=== PATIENT | female | born 1995 | race Hispanic/Latino ===

== ENCOUNTER 2017-08-31 16:38 | Inpatient (IN) | payer OTHER ==
[~2017-08-31] VITALS: Ht 167.6 cm; Wt 77.1 kg
--- NOTE | 2017-08-31 16:52 | ED GENERAL ADULT ---
History of Present Illness General Chief Complaint: General Adult Stated Complaint: BODY ACHES,COUGH Source: patient, family Exam Limitations: no limitations Vital Signs & Intake/Output Vital Signs & Intake/Output Vital Signs Date Time Temp Pulse Resp B/P B/P Pulse O2 O2 Flow FiO2 Mean Ox Delivery Rate 08/31 2304 Room Air 08/31 2226 99.4 08/31 2225 99.4 108 18 101/53 96 Room Air 08/31 2014 100.2 08/31 2008 100.2 112 18 111/64 98 Room Air 08/31 2006 112 111/64 08/317 99.0 117 20 85/47 97 Room Air 08/31 1836 99.0 08/31 1715 Room Air Room Air 08/31 1714 103.0 08/31 1643 103.0 126 119/72 ED Intake and Output 09/01 0000 08/31 1200 Intake Total 3000 Output Total Balance 3000 Intake, IV 3000 Patient 170 lb Weight Weight Reported by Patient Measurement Method Allergies Coded Allergies: No Known Allergies (08/31/17) Reconcile Medications Albuterol Sulfate (Proair Hfa) 90 MCG HFA.AER.AD 2 PUF INH PRN ASTHMA ( Reported) Pnv59/Iron,Carb&Fum/FA/Dss/Dha (Citranatal [place] Capsule) 27 MG IRON-1 MG-50 MG-260 MG CAPSULE 1 CAP PO DAILY (Reported) Triage Note: TRIAGE: 22 Y/O FEMALE PRESENTS WITH TEMP 103.0. C/O FEVER AND BODY ACHES. DENIES ABDOMINAL CRAMPING OR ABDOMINAL PAIN. DENIES VAGINAL DISCHARGE. LAST DOSE TYLENOL AT 1PM. DUE DATE: 01/21/2018 OB: FRANCESCA SPOKE WITH CHILDBIRTH - OKAY TO BE SEEN IN ED. Triage Nurses Notes Reviewed? yes Onset: Gradual Duration: hour(s): (4-6 HOURS) Timing: no prior history Injury Environment: home Severity: moderate No Modifying Factors: none : Yes Patient currently breastfeeds: No HPI: Patient is a 22-year-old female who is currently 20 weeks , due date of January 21, presenting to the emergency Department chief complaint of sudden onset body aches, fevers up to 103 at home, dry cough started approximately 3-4 hours prior to arrival. Her last dose of Tylenol was 650 mg taken at 1 PM. She reports to help slightly and then symptoms returned. She has not gotten the flu shot this year. Denies any abdominal pain. No vaginal discharge or bleeding. Denies any urinary frequency or urgency or dysuria. No chest pain or palpitations. No sick contacts or recent travel. (Jackie Concepcion) Past History Travel History Traveled to [place] past 21 day No Medical History Any Pertinent Medical History? see below for history Surgical History Surgical History: non-contributory Psychosocial History What is your primary language Czech Tobacco Use: Never used ETOH Use: denies use Illicit Drug Use: denies illicit drug use Family History Hx Contributory? No (Jackie Concepcion) Review of Systems Review of Systems Constitutional: Reports: fever, malaise, weakness. Comments Review of systems: See HPI, All other systems negative. Constitutional, no weight loss HEENT: No visual changes Cardiovascular: No chest pain ,palpitation , orthopnea or ankle swelling Skin, no jaundice no rashes Respiratory: No dyspnea sputum or hemoptysis GI: No nausea no vomiting : No dysuria No hematuria Muscle skeletal: no back pain, no neck pain, Neurologic: No numbness no confusion Psych: No stress anxiety or depression,. Heme/endocrine: No bruising no bleeding no polyuria or polydipsia Immunology: No splenectomy or history of AIDS (Jackie Concepcion) Physical Exam Physical Exam General Appearance: well developed/nourished, alert, awake, anxious Comments: Well-developed well-nourished person in MILD DISTRESS HEENT: Pupils equally round and reactive to light and accommodation. Nose is atraumatic. External auditory canal and Tympanic membranes clear. Pharynx is mildyl erythematous. No swelling or edema. Dry oral mucosa. Neck: Supple, no lymphadenopathy Back: Nontender, no CVA tenderness. Cardiovascular: Tachycardic rate and rhythms no murmurs rubs or gallops Respiratory: Chest nontender. No respiratory distress.breath sounds clear to auscultation bilaterally Abdomen: Soft, abdomen, nontender nondistended, no appreciable organomegaly. Normal bowel sounds. No ascites. Old surgical incision noted on the right lower quadrant without surrounding erythema or edema. Extremity: No edema Neuro: Alert oriented x3 Skin: No appreciable rash on exposed skin, skin is warm and dry. Psych: Mood and affect is normal, memory and judgment is normal. Core Measures ACS in differential dx? No CVA/TIA Diagnosis: No Sepsis Present: No Sepsis Focused Exam Completed? No (Jackie Concepcion) Progress Differential Diagnoses I considered the following diagnoses in my evaluation of the patient: Viral syndrome, influenza, dehydration, and actually abnormality,strep, uti Plan of Care: Orders Procedure Date/time Status Regular Diet 09/01 B Active THROAT CULTURE W/QUICK STREP 09/01 311 Active LOWER RESPIRATORY CULTURE 09/01 311 Active BLOOD CULTURE 08/31 2322 Active Pathway - chart 08/31 2319 Active House Staff 08/31 2319 Active Patient Data 08/31 2319 Active Code Status 08/31 232 Active Vital Signs 08/31 2302 Active Teach/Educate 08/31 2302 Active Pain Treatment and Response 08/31 2302 Active Nutritional Intake, Monitor 08/31 2302 Active Isolation 08/31 2302 Active Intake & Output 08/31 2302 Active Patient Care Conference 08/31 2302 Active Activity/Ambulation 08/31 2302 Active ED Holding Orders 08/31 2144 Active Admit to inpatient 08/31 2144 Active Code Status 08/31 2144 Complete Patient Data 08/31 2113 Active Add-on Test (ER Only) 08/31 1951 Active MISTAKE 08/31 193 Active CULTURE,URINE 08/31 193 Active THROAT CULTURE W/QUICK STREP 08/31 1838 Active URINALYSIS 08/31 1652 Complete HUMAN BETA HCG TITRE 08/31 1652 Complete COMPREHENSIVE METABOLIC PANEL 08/31 1652 Complete CBC WITHOUT DIFFERENTIAL 08/31 1652 Complete Intake & Output 08/31 1643 Active RAPID VIRAL INFLUENZA A 08/31 1641 Complete VTE Mechanical Prophylaxis 08/31 UNK Active Current Medications Sig/Maximilian Start time Last Medication Dose Stop Time Status Admin Enoxaparin Sodium 40 MG DAILY 09/01 1000 AC (Lovenox) Oseltamivir Phosphate 75 MG BID 09/01 1000 AC (Tamiflu 75MG) 09/05 0959 Acetaminophen 650 MG Q8P PRN 08/31 2330 AC (Tylenol) Sodium Chloride 1,000 ML Q10H 08/31 2330 AC 09/01 (Normal Saline 0.9%) 09/02 0529 0020 Laboratory Tests 08/31/17 1934: Urinalysis HEAVY H, Urine Color YEL, Urine Clarity HAZY H, Urine pH 7.0, Ur Specific [place] 1.025, Urine Protein TRACE H, Urine Ketones 15 H, Urine Nitrite NEG, Urine Bilirubin NEG, Urine Urobilinogen 2.0 H, Ur Leukocyte Esterase MOD H, Ur Microscopic SEDIMENT EXAMINED, Urine WBC 3-5 H, Ur Epithelial Cells MANY H, Urine Bacteria FEW H, Hyaline Casts RARE H, Urine Hemoglobin NEG, Urine Glucose NEG 08/31/17 1704: Anion Gap 11, Estimated GFR > 60, BUN/Creatinine Ratio 15.0, Glucose 91, Calcium 8.3 L, Total Bilirubin 0.3, AST 64 H, ALT 62 H, Alkaline Phosphatase 77, Total Protein 6.1 L, Albumin 3.3 L, Globulin 2.8, Albumin/Globulin Ratio 1.2, Beta HCG, Quant 64078.0, CBC w Diff NO MAN DIFF REQ, RBC 3.32 L, MCV 94.9, MCH 32.7 H, MCHC 34.5, RDW 12.4, MPV 7.9, Gran % 82.6 H, Lymphocytes % 7.0 L, Monocytes % 10.1 H, Eosinophils % 0.2, Basophils % 0.1, Absolute Granulocytes 4.3, Absolute Lymphocytes 0.4 L, Absolute Monocytes 0.5, Absolute Eosinophils 0 , Absolute Basophils 0 Microbiology 09/01 031 LOWER RESP: Respiratory Culture - ORD 09/01 311 LOWER RESP: Gram Stain - ORD 08/31 193 URINE ROUT: Urine Culture - RECD 08/31 1647 NASOPHARYN: Influenza Virus A & B Rapid Smear - COMP INFLUENZA TYPE A Patient received a total of 2 L IV hydration, finally able to override urine, urine is dark in color. Patient reports that she still feeling extremity weak and fatigued and has a frontal headache. Patient has received a total of 975 mg of by mouth Tylenol. Since patient is not improving, positive influenza we will admit patient for IV hydration, symptomatic treatment and continuous monitoring. Spoke with , covering CONSUMER AFFAIRS DIRECTOR, he is okay with admitting the patient to medicine. He will consult on the patient tomorrow. Recommended we hold off treatment for a questionable UTI until cultures return. Patient will continue Tamiflu. Patient will continue IV hydration and by mouth Tylenol. Patient nontoxic. Discussed with and she agrees with plan. Initial ED EKG: none (Jared THOMPSON,Jackie) Departure Departure Time of Disposition: 2109 Disposition: STILL A PATIENT Condition: Stable Clinical Impression Primary Impression: Influenza Secondary Impressions: Urinary tract infection Qualifiers: Urinary tract infection type: site unspecified Hematuria presence: without hematuria Qualified Code: N39.0 - Urinary tract infection, site not specified Referrals: Patient Has No Primary Care Dr Additional Instructions: Follow-up with your CONSUMER AFFAIRS DIRECTOR, call tomorrow to make an appointment for the next 1- 2 days. Increase fluids. Return for worsening symptoms or concerns. Use over- the-counter Tylenol as directed for any aches or pains or fevers. Take Tamiflu as prescribed. Departure Forms: Customer Survey General Discharge Information Admission Note Spoke With: Monica Gonzalez MD Documentation of Exam: Documentation of any treatments & extenuating circumstances including Concerns Regarding Discharge (functional status, medication knowledge or non-compliance, living conditions, etc.) that warrant an admission rather than observation: Patient requiring IV fluids, by mouth antipyretics, by mouth Tamiflu, CONSUMER AFFAIRS DIRECTOR consultation, discharge at this time is medically harmful has patient is high risk for complications of flu secondary to . (Jackie Concepcion) PA/SUPERVISOR LENDING ACTIVITIES Co-Sign Statement Statement: ED Attending supervision documentation- [] I saw and evaluated the patient. I have also reviewed all the pertinent lab results and diagnostic results. I agree with the findings and the plan of care as documented in the PA's/SUPERVISOR LENDING ACTIVITIES's documentation. [X] I have reviewed the ED Record and agree with the PA's/SUPERVISOR LENDING ACTIVITIES's documentation. [] Additions or exceptions (if any) to the PAs/SUPERVISOR LENDING ACTIVITIES's note and plan are summarized below: [] (Rosana COUCH,Candida) Critical Care Note Critical Care Note Critical Care Time: non-applicable (Jackie Concepcion)
[2017-08-31 17:15] LABS: ABSOLUTE BASOPHIL COUNT 0 /CUMM (0.0-0.2); ABSOLUTE EOSINOPHIL COUNT 0 /CUMM (0.0-0.7); ABSOLUTE GRANULOCYTE CT 4.3 /CUMM (1.4-6.5); ABSOLUTE LYMPH COUNT 0.4 /CUMM (1.2-3.4); ABSOLUTE MONOCYTE COUNT 0.5 /CUMM (0.10-0.60); BASOPHIL % 0.1 % (0.0-2.0); EOSINOPHIL % 0.2 % (0-5); GRANULOCYTE % 82.6 % (42.2-75.2); HEMATOCRIT 31.5 % (37-47); MEAN CORPUSCULAR HGB 32.7 PG (27.0-31.0); MEAN CORPUSCULAR HGB CONC 34.5 G/DL (33.0-37.0); MEAN CORPUSCULAR VOLUME 94.9 FL (81.0-99.0); MEAN PLATELET VOLUME 7.9 FL (7.4-10.4); PLATELET COUNT 217 /CUMM (130-400); RBC DISTRIBUTION WIDTH 12.4 % (11.5-14.5); RED BLOOD CELL CT 3.32 /CUMM (4.20-5.40); WHITE BLOOD CELL COUNT 5.3 /CUMM (4.8-10.8)
[2017-08-31] MEDS ORDERED: CITRANATAL HAR1 EACH PO (20:24)
[2017-08-31] MEDS ORDERED: PROAIR HFA8.5 GM INH (20:24)
--- NOTE | 2017-08-31 21:33 | History & Physical ---
Danielito COUCH,[facility] 08/31/17 2133: General Information and HPI MD Statement: I have seen and personally examined FABRICE CARMONA and documented this H&P. The patient is a 22 year old F who presented with a patient stated chief complaint of [fatigue]. Source of Information: patient Exam Limitations: no limitations History of Present Illness: The patient is 22-year-old female with past medical history OF Asthma, 1 miscarriage and 1 . She is at 20 wk of gestation at present. She's presented to [facility] ED on 08/31 with complaint of body aches fever and dry cough. Patient was in usual state of health until one week back when she developed a stomach viral illness resulting in diarrhea. Patient was sick for 2 days and recovered. She was feeling better. But has not been going to work for past 1 week. Today patient had sudden onset of body aches and pains. She took a fever at home and it was up to 102. She took Tylenol around 1 PM and had some symptomatic relief but later started feeling body/muscle aches and fatigue. She also developed a dry cough 3-4 hours before presenting to ED. Rest of review of system is negative no chills. No nausea no abdominal pain or urinary symptoms. No sick contacts. Patient did not receive flu shot this year. Allergies/Medications Allergies: Coded Allergies: No Known Allergies (08/31/17) Home Med list Albuterol Sulfate (Proair Hfa) 90 MCG HFA.AER.AD 2 PUF INH PRN ASTHMA ( Reported) Pnv59/Iron,Carb&Fum/FA/Dss/Dha (Citranatal [place] Capsule) 27 MG IRON-1 MG-50 MG-260 MG CAPSULE 1 CAP PO DAILY (Reported) Past History Travel History Traveled to [place] past 21 day No Surgical History Surgical History: non-contributory Past Family/Social History Family History Relations & Conditions if any No family history of: *No pertinent family history Psychosocial History Where do you live? Home Primary Language: [place] Smoking Status: Former Smoker ETOH Use: denies use Illicit Drug Use: denies illicit drug use Functional Ability ADLs Independent: dressing, eating, toileting, bathing. Ambulation: independent IADLs Independent: shopping, housework, finances, food prep, telephone, transportation , medication admin. Review of Systems Review of Systems Constitutional: Reports: fever, malaise, weakness. EENTM: Reports: no symptoms. Cardiovascular: Reports: no symptoms. Denies: chest pain. Respiratory: Reports: cough. Denies: sputum production, stridor, wheezing. GI: Reports: no symptoms. Genitourinary: Reports: no symptoms. Denies: dysuria, frequency, hematuria, hesitation, nocturia, pain, urgency. Musculoskeletal: Reports: no symptoms, see HPI, back pain, gout, joint pain, joint swelling, muscle pain, muscle stiffness, neck pain. Skin: Reports: no symptoms. Neurological/Psychological: Reports: no symptoms. Exam & Diagnostic Data Last 24 Hrs of Vital Signs/I&O Vital Signs Date Time Temp Pulse Resp B/P B/P Pulse O2 O2 Flow FiO2 Mean Ox Delivery Rate 08/31 2304 Room Air 08/31 2226 99.4 08/31 2225 99.4 108 18 101/53 96 Room Air 08/31 2014 100.2 08/31 2008 100.2 112 18 111/64 98 Room Air 08/31 2006 112 111/64 08/31 1836 99.0 117 20 85/47 97 Room Air 08/31 1836 99.0 08/31 1715 Room Air Room Air 08/31 1714 103.0 08/31 1643 103.0 126 119/72 Intake & Output 09/01 0800 09/01 0000 08/31 1600 Intake Total 3000 Output Total Balance 3000 Intake, IV 3000 Patient 170 lb Weight Weight Reported by Patient Measurement Method Physical Exam General Appearance Alert, Oriented X3, Cooperative, No Acute Distress Skin No Rashes Neck Supple Lymphatic Cervical nl Cardiovascular Normal S1, Normal S2, No Murmurs Lungs Clear to Auscultation, Normal Air Movement Abdomen Normal Bowel Sounds, Soft, No Tenderness Neurological Normal Speech Extremities Normal Pulses, No Tenderness/Swelling Last 24 Hrs of Labs/Quentin: Laboratory Tests 08/31/17 1934: Urinalysis HEAVY H, Urine Color YEL, Urine Clarity HAZY H, Urine pH 7.0, Ur Specific [place] 1.025, Urine Protein TRACE H, Urine Ketones 15 H, Urine Nitrite NEG, Urine Bilirubin NEG, Urine Urobilinogen 2.0 H, Ur Leukocyte Esterase MOD H, Ur Microscopic SEDIMENT EXAMINED, Urine WBC 3-5 H, Ur Epithelial Cells MANY H, Urine Bacteria FEW H, Hyaline Casts RARE H, Urine Hemoglobin NEG, Urine Glucose NEG 08/31/17 1704: Anion Gap 11, Estimated GFR > 60, BUN/Creatinine Ratio 15.0, Glucose 91, Calcium 8.3 L, Total Bilirubin 0.3, AST 64 H, ALT 62 H, Alkaline Phosphatase 77, Total Protein 6.1 L, Albumin 3.3 L, Globulin 2.8, Albumin/Globulin Ratio 1.2, Beta HCG, Quant 44845.0, CBC w Diff NO MAN DIFF REQ, RBC 3.32 L, MCV 94.9, MCH 32.7 H, MCHC 34.5, RDW 12.4, MPV 7.9, Gran % 82.6 H, Lymphocytes % 7.0 L, Monocytes % 10.1 H, Eosinophils % 0.2, Basophils % 0.1, Absolute Granulocytes 4.3, Absolute Lymphocytes 0.4 L, Absolute Monocytes 0.5, Absolute Eosinophils 0 , Absolute Basophils 0 Microbiology 08/31 193 URINE ROUT: Urine Culture - RECD 08/31 1647 NASOPHARYN: Influenza Virus A & B Rapid Smear - COMP INFLUENZA TYPE A Assessment/Plan Assessment: The patient is 22-year-old female with past medical history 1 miscarriage and 1 . She is at 20 wk of gestation at present. She's presented to [facility] ED on 08/31 with complaint of body aches fever and dry cough. -Vital signs temperature 103, heart rate 126, blood pressure 119/72, oxygen saturation 97% on room air -Pertinent labs H/H 10.3, AST 64 ALT 62 urine shows moderate leukoesterase with many epithelial cells, few urine bacteria and 3-5 urine WBCs -In ED patient dropped her pressure to 85/47 and received 2L normal saline 975 mg of Tylenol. Flu test was done which was positive. The patient is being admitted to general medicine floor and is being treated evaluated for following conditions #Sepsis secondary to Influenza type A Patient has symptoms of fatigue and body aches and is presenting with fever, tachycardia and transient hypotension. Her flu test was positive for type influenza type A. -Tamiflu for 5 days -Monitoring vitals closely -Panculture -IV Tylenol -IVF #Asymptomatic bacteriuria Patient UA positive for moderate leukoesterase along with bacteria and few WBCs. Asymptomatic bacteriuria should be treated in . However UA does show many epithelial cells questioning the specimen. was contacted in the ED and recommended to hold off antibiotics till cultures. -Repeat UA -Follow urine culture -UNEMPLOYMENT SPECIALIST consult in the morning -Low threshold of treating the UTI #Transaminitis patient is presenting with AST 64 and ALT 62 likely secondary to ongoing viral infection -Monitor LFTs # Patient is at 20 weeks of gestation. -UNEMPLOYMENT SPECIALIST consult in the morning -Regular doppler/USG #FC/DVT prophylaxis with Lovenox/regular diet As Ranked By This Provider Problem List: 1. Influenza Core Measures/Misc (04/21) Acute Coronary Syndrome ACS Diagnosis: No Congestive Heart Failure Congestive Heart Failure Diagnosis No Cerebrovascular Accident CVA/TIA Diagnosis: No VTE (View Protocol) VTE Risk Factors / No Mechanical VTE Prophylaxis d/t N/A MechProphylax Ordered No VTE Pharm Prophylaxis d/t NA PharmProphylax ordered Sepsis (View protocol) Sepsis Present: Yes Julia Woodson 09/01/17 0140: Resident Review Statement Resident Statement: discussed with collector of internal revenue Other Findings: 22-year-old woman A2 with past medical history of asthma, currently 20 weeks , presented to ER with complaint of body aches, fever Tmax 102 and dry cough. She also reports having diarrhea a week ago that has resolved. She took Tylenol at home. Denies any sick contacts around. Other review of system negative. Vitals on admission: Temperature 103, pulse 126, respiratory rate 20, blood pressure 119/72 and oxygen saturation 97% on room air. Physical exam normal Labs within normal range except H&H 10.8/31.5. Rapid flu positive and influenza A. UA showed hazy urine with trace proteins, 3-5 urine WBCs and moderately high leukocyte esterase. In ER she was given, Tylenol and Tamiflu 1. Assessment and plan She is young 22-year-old woman, 20 weeks , with past medical history of asthma is going to be admitted on general medicine floor for influenza. Vitals every shift. Continue IV hydration. We will continue Tamiflu. OB consult in a.m. Follow-up urine and blood cultures. Pain management pathway. DVT prophylaxis. Full code Carlos COUCH, [facility] 09/01/17 0223: Attending MD Review Statement Attending Statement Attending MD Statement: examined this patient, discuss w/resident/PA/LAY OUT WORKER, agreed w/resident/PA/LAY OUT WORKER, discussed with family, reviewed images, amended to note Attending Assessment/Plan: 22 yo F A2 now at 20 weeks gestation (BRAYAN 01/21/2018), has h/o childhood asthma, recovering from a 'stomach virus' in the past week, is here today for evaluation of sudden onset malaise, fever 102, dry cough and sore throat a few hours prior to ER arrival. She took tylenol for fever with no effect. No sick contacts. She did not get the flu vaccines. She has no abdominal or urinary symptoms. Her OB is Shahbaz Hairston. Vitals: Tmax 103, HR 100-120's, BP 119/72 --> 85/47 --> 111/64, sats 96% RA. Exam: AAO, ill-appearing, dry mucous membranes, Abd: 20 weeks gestation, otherwise unremarkable exam. Labs: WBC 5.3, AST 64, ALT 62. UA trace protein, mod LE, few bacteria. Flu swab: influenza A Assessment and plan: 1. Sepsis, Influenza A 2. Transient hypotension - resolved 3. 20 weeks gestation 4. Asthma 5. Asymptomatic bacteriuria 6. Transaminitis in the setting of the flu - Admit to general medicine - [facility] nebs - Panculture, check strep throat - Gentle IV hydration - Tamiflu BID (safe in ) - Tylenol as needed for fevers - Dr. Diaz was contacted by jake JONES to admit to medicine. He will consult in AM - As per Dr. Diaz, holding off on antibiotic coverage for positive UA in patient. Follow urine cultures. - doppler done in the ER HR around 160's. DVT ppx Lovenox. Full code.
--- NOTE | 2017-09-01 02:14 | Admission Certification ---
Admission Certification Certification Statement - As attending physician, I certify that at the time of - admission, based on clinical presentation, severity of - symptoms, need for further diagnostic testing and - therapeutic interventions, and risk of adverse outcomes - without in-hospital treatment, in my clinical assessment, - this patient requires an acute hospital stay for a minimum - of two nights or longer. I have also considered psychsocial - factors such as support system, advanced age, financial - issues, cognitive issues, and failed out-patient treatments, - past re-admission history, safety of patient, and lack of - compliance as applicable. Specific rationale supporting this admission is: Influenza in a patient.
[2017-09-01 06:17] VITALS: BP 104/52
--- NOTE | 2017-09-01 11:52 | Event Note ---
Event Note Event Note: SPOKE WITH dr.OREILLY LEES TO START KEFLEX FOR ASYMPTOMATIC BACTIURIA
--- NOTE | 2017-09-01 13:12 | Cons- OBGYN ---
General Information and HPI Consulting Request Date of Consult: 09/01/17 Requested By: Carlos COUCH,Monica Reason for Consult: PT WITH INFLUENSA Source of Information: patient, old records Exam Limitations: no limitations History of Present Illness: Pt has been having fever and chills has seen by [facility] did not have Flu immunization this season. Allergies/Medications Allergies: Coded Allergies: No Known Allergies (08/31/17) Home Med List: Albuterol Sulfate (Proair Hfa) 90 MCG HFA.AER.AD 2 PUF INH PRN ASTHMA ( Reported) Pnv59/Iron,Carb&Fum/FA/Dss/Dha (Citranatal [place] Capsule) 27 MG IRON-1 MG-50 MG-260 MG CAPSULE 1 CAP PO DAILY (Reported) Current Medications: Current Medications Sig/Maximilian Start time Last Medication Dose Route Stop Time Status Admin Acetaminophen 650 MG Q8P PRN 08/31 2330 AC 09/01 PO 0535 Acetaminophen 0 .STK-MED ONE 08/31 2015 DC PO Acetaminophen 325 MG ONCE ONE 08/31 2014 DC 08/31 PO 08/31 Acetaminophen 0 .STK-MED ONE 08/31 1714 DC PO Acetaminophen 650 MG ONCE ONE 08/31 1700 DC 08/31 PO 08/31 1701 1714 Cephalexin 500 MG Q12 09/01 1230 AC PO Enoxaparin Sodium 40 MG DAILY 09/01 1000 AC 09/01 SC 0935 Oseltamivir Phosphate 75 MG BID 09/01 1000 AC 09/01 PO 09/05 0959 0935 Oseltamivir Phosphate 75 MG ONCE ONE 08/31 1715 DC 08/31 PO 08/31 1716 1714 Sodium Chloride 1,000 ML Q10H 08/31 2330 AC 09/01 IV 09/02 0529 1229 Sodium Chloride 1,000 ML BOLUS ONE 08/31 2014 DC 08/31 IV 08/31 2114 2027 Sodium Chloride 1,000 ML BOLUS ONE 08/31 1845 DC 08/31 IV 08/31 1944 1836 Sodium Chloride 1,000 ML BOLUS ONE 08/31 1700 DC 08/31 IV 08/31 1759 1705 Past History Medical History Blood Transfusion Hx: No Neurological: NONE EENT: NONE Cardiovascular: NONE Respiratory: asthma Gastrointestinal: NONE Hepatic: NONE Renal: NONE Musculoskeletal: NONE Psychiatric: NONE Endocrine: NONE Blood Disorders: NONE Cancer(s): NONE LOCKER ROOM MANAGER/Reproductive: NONE Surgical History Pertinent Surgical History: non-contributory Psychosocial History Where Do You Live? Home Primary Language: Tajik Smoking Status: Former Smoker ETOH Use: denies use Illicit Drug Use: denies illicit drug use Functional Ability ADLs Independent: dressing, eating, toileting, bathing. Ambulation: independent IADLs Independent: shopping, housework, finances, food prep, telephone, transportation , medication admin. Review of Systems Review of Systems Constitutional: Reports: chills, fever, malaise, weakness. EENTM: Denies: blurred vision, double vision, visual changes. Cardiovascular: Reports: chest pain, orthopena. Respiratory: Denies: cough, orthopnea, short of breath, wheezing. GI: Denies: abdominal pain. Genitourinary: Denies: dysuria. Musculoskeletal: Reports: back pain, muscle pain. Neurological/Psychological: Denies: anxiety, depressed. Exam & Diagnostic Data Vital Signs and I&O Vital Signs Date Time Temp Pulse Resp B/P B/P Pulse O2 O2 Flow FiO2 Mean Ox Delivery Rate 09/01 0647 98.7 09/01 0630 98.7 09/01 0617 101.9 108 20 104/52 94 09/01 0535 101.9 08/31 2304 Room Air 08/31 2226 99.4 08/31 2225 99.4 108 18 101/53 96 Room Air 08/31 2014 100.2 08/31 2009 100.2 112 18 111/64 98 Room Air 08/31 2006 112 111/64 08/317 99.0 117 20 85/47 97 Room Air 08/31 1836 99.0 08/31 1715 Room Air Room Air 08/31 1713 103.0 08/31 1643 103.0 126 119/72 Intake & Output 09/01 1600 09/01 0800 09/01 0000 08/31 1600 08/31 0800 08/31 0000 Intake Total 1150 3000 Output Total 400 Balance 750 3000 Intake, IV 800 3000 Intake, Oral 350 Output, Urine 400 Patient 170 lb Weight Weight Reported by Patient Measurement Method Physical Exam General Appearance: well developed/nourished, no apparent distress, alert, awake Head: atraumatic Eyes: Bilateral: normal appearance. Ears, Nose, Throat: normal pharynx Neck: supple Respiratory: normal breath sounds Cardiovascular: regular rate/rhythm Gastrointestinal: soft, non-tender Extremities: normal inspection Reproductive: uterus 20 cm with positive FHT @145bpm Last 24 Hours of Labs: Laboratory Tests 08/31 08/31 1934 1704 Chemistry Sodium (137 - 145 mmol/L) 137 Potassium (3.5 - 5.1 mmol/L) 3.6 Chloride (98 - 107 mmol/L) 104 Carbon Dioxide (22 - 30 mmol/L) 22 Anion Gap (5 - 16) 11 BUN (7 - 17 mg/dL) 6 L Creatinine (0.5 - 1.0 mg/dL) 0.4 L Estimated GFR (>60 ml/min) > 60 BUN/Creatinine Ratio (7 - 25 %) 15.0 Glucose (65 - 99 mg/dL) 91 Calcium (8.4 - 10.2 mg/dL) 8.3 L Total Bilirubin (0.2 - 1.3 mg/dL) 0.3 AST (14 - 36 U/L) 64 H ALT (9 - 52 U/L) 62 H Alkaline Phosphatase (<127 U/L) 77 Total Protein (6.3 - 8.2 g/dL) 6.1 L Albumin (3.5 - 5.0 g/dL) 3.3 L Globulin (1.9 - 4.2 gm/dL) 2.8 Albumin/Globulin Ratio (1.1 - 2.2 %) 1.2 Beta HCG, Quant (mIU/mL) 86417.0 Hematology CBC w Diff NO MAN DIFF REQ WBC (4.8 - 10.8 /CUMM) 5.3 RBC (4.20 - 5.40 /CUMM) 3.32 L Hgb (12.0 - 16.0 G/DL) 10.8 L Hct (37 - 47 %) 31.5 L MCV (81.0 - 99.0 FL) 94.9 MCH (27.0 - 31.0 PG) 32.7 H MCHC (33.0 - 37.0 G/DL) 34.5 RDW (11.5 - 14.5 %) 12.4 Plt Count (130 - 400 /CUMM) 217 MPV (7.4 - 10.4 FL) 7.9 Gran % (42.2 - 75.2 %) 82.6 H Lymphocytes % (20.5 - 51.1 %) 7.0 L Monocytes % (1.7 - 9.3 %) 10.1 H Eosinophils % (0 - 5 %) 0.2 Basophils % (0.0 - 2.0 %) 0.1 Absolute Granulocytes (1.4 - 6.5 /CUMM) 4.3 Absolute Lymphocytes (1.2 - 3.4 /CUMM) 0.4 L Absolute Monocytes (0.10 - 0.60 /CUMM) 0.5 Absolute Eosinophils (0.0 - 0.7 /CUMM) 0 Absolute Basophils (0.0 - 0.2 /CUMM) 0 Urines Urinalysis HEAVY H Urine Color (YEL,AMB,STR) YEL Urine Clarity (CLEAR) HAZY H Urine pH (5.0 - 8.0) 7.0 Ur Specific [place] (1.001 - 1.035) 1.025 Urine Protein (NEG,<30 MG/DL) TRACE H Urine Ketones (NEG) 15 H Urine Nitrite (NEG) NEG Urine Bilirubin (NEG) NEG Urine Urobilinogen (0.1 - 1.0 EU/dl) 2.0 H Ur Leukocyte Esterase (NEG) MOD H Ur Microscopic SEDIMENT EXAMINED Urine WBC (0 - 2 /HPF) 3-5 H Ur Epithelial Cells (NONE,FEW) MANY H Urine Bacteria (NEG/NONE) FEW H Hyaline Casts (0/LPF) RARE H Urine Hemoglobin (NEG) NEG Urine Glucose (N MG/DL) NEG 08/31 1647 Serology Virus Culture Pending Assessment/Plan Assessment/Plan IUP at 20 weeks vss Tmax 103 T 100.3 Influenza R/O cystitis PLAN continue supportive care continue tamaflu 75mg po bid continue Keflex untill culture results back Problem List: 1. Influenza 2. Consult Acknowledgment - Thank you for your consult request. Attending MD Review Statement Attending Statement Attending MD Statement: examined this patient, discuss w/resident/PA/ROLL COVERER, discussed with family Attending Assessment/Plan: IUP at 20 weeks vss Tmax 103 T 100.3 Influenza R/O cystitis PLAN continue supportive care continue tamaflu 75mg po bid continue Keflex untill culture results back
--- NOTE | 2017-09-01 13:32 | PN- Att Addend ---
Attending Addendum Attending Brief Note Patient seen and examined, feels very tired and exhausted, achy. Fever spike this am. Vital Signs Date Time Temp Pulse Resp B/P B/P Pulse O2 O2 Flow FiO2 Mean Ox Delivery Rate 09/01 0647 98.7 09/01 0630 98.7 09/01 0617 101.9 108 20 104/52 94 09/01 0535 101.9 08/31 2304 Room Air 08/31 2226 99.4 08/31 2225 99.4 108 18 101/53 96 Room Air 08/31 2014 100.2 08/31 2008 100.2 112 18 111/64 98 Room Air 08/31 2006 112 111/64 08/31 183 99.0 117 20 85/47 97 Room Air 08/31 183 99.0 08/31 1715 Room Air Room Air 08/31 171 103.0 08/31 1643 103.0 126 119/72 on exam; aox3, nad. cv; s1, s2, rrr resp; clear abd; soft, nt, bs+ ext; no edema. Laboratory Tests 08/31 08/31 1934 1704 Chemistry Sodium (137 - 145 mmol/L) 137 Potassium (3.5 - 5.1 mmol/L) 3.6 Chloride (98 - 107 mmol/L) 104 Carbon Dioxide (22 - 30 mmol/L) 22 Anion Gap (5 - 16) 11 BUN (7 - 17 mg/dL) 6 L Creatinine (0.5 - 1.0 mg/dL) 0.4 L Estimated GFR (>60 ml/min) > 60 BUN/Creatinine Ratio (7 - 25 %) 15.0 Glucose (65 - 99 mg/dL) 91 Calcium (8.4 - 10.2 mg/dL) 8.3 L Total Bilirubin (0.2 - 1.3 mg/dL) 0.3 AST (14 - 36 U/L) 64 H ALT (9 - 52 U/L) 62 H Alkaline Phosphatase (<127 U/L) 77 Total Protein (6.3 - 8.2 g/dL) 6.1 L Albumin (3.5 - 5.0 g/dL) 3.3 L Globulin (1.9 - 4.2 gm/dL) 2.8 Albumin/Globulin Ratio (1.1 - 2.2 %) 1.2 Beta HCG, Quant (mIU/mL) 47566.0 Hematology CBC w Diff NO MAN DIFF REQ WBC (4.8 - 10.8 /CUMM) 5.3 RBC (4.20 - 5.40 /CUMM) 3.32 L Hgb (12.0 - 16.0 G/DL) 10.8 L Hct (37 - 47 %) 31.5 L MCV (81.0 - 99.0 FL) 94.9 MCH (27.0 - 31.0 PG) 32.7 H MCHC (33.0 - 37.0 G/DL) 34.5 RDW (11.5 - 14.5 %) 12.4 Plt Count (130 - 400 /CUMM) 217 MPV (7.4 - 10.4 FL) 7.9 Gran % (42.2 - 75.2 %) 82.6 H Lymphocytes % (20.5 - 51.1 %) 7.0 L Monocytes % (1.7 - 9.3 %) 10.1 H Eosinophils % (0 - 5 %) 0.2 Basophils % (0.0 - 2.0 %) 0.1 Absolute Granulocytes (1.4 - 6.5 /CUMM) 4.3 Absolute Lymphocytes (1.2 - 3.4 /CUMM) 0.4 L Absolute Monocytes (0.10 - 0.60 /CUMM) 0.5 Absolute Eosinophils (0.0 - 0.7 /CUMM) 0 Absolute Basophils (0.0 - 0.2 /CUMM) 0 Urines Urinalysis HEAVY H Urine Color (YEL,AMB,STR) YEL Urine Clarity (CLEAR) HAZY H Urine pH (5.0 - 8.0) 7.0 Ur Specific [place] (1.001 - 1.035) 1.025 Urine Protein (NEG,<30 MG/DL) TRACE H Urine Ketones (NEG) 15 H Urine Nitrite (NEG) NEG Urine Bilirubin (NEG) NEG Urine Urobilinogen (0.1 - 1.0 EU/dl) 2.0 H Ur Leukocyte Esterase (NEG) MOD H Ur Microscopic SEDIMENT EXAMINED Urine WBC (0 - 2 /HPF) 3-5 H Ur Epithelial Cells (NONE,FEW) MANY H Urine Bacteria (NEG/NONE) FEW H Hyaline Casts (0/LPF) RARE H Urine Hemoglobin (NEG) NEG Urine Glucose (N MG/DL) NEG 01/27 6507 Serology Virus Culture Pending A/P; 22 y/o 20 weeks admitted with fever, influenza positive, and asymptomatic bacteriuria. Continue abx, tamiflu. Follow up cx. Appreciate WARP HAULER input. Continue symptomatic treatment. DVt px; ALPS
[2017-09-01 14:39] VITALS: BP 98/62
[2017-09-01 21:41] VITALS: BP 100/62
[2017-09-02 06:33] VITALS: BP 94/64
--- NOTE | 2017-09-02 07:30 | PN- Housestaff ---
Bairon COUCH,Valeria 09/02/17 0730: Subjective Follow-up For: FLU ASYMPTOMATIC UTI IN Subjective: PATIENT STATES THAT SHE HAS MALAISE, HAS A SORE THROAT. SHE HAS NO URINARY SYMPTOMS STILL. Review of Systems Constitutional: Reports: malaise. EENTM: Reports: throat pain. Objective Last 24 Hrs of Vital Signs/I&O Vital Signs Date Time Temp Pulse Resp B/P B/P Pulse O2 O2 Flow FiO2 Mean Ox Delivery Rate 09/02 0800 Room Air 09/02 0633 98.0 72 20 94/64 97 09/02 0000 Room Air 09/01 2141 98.1 86 18 100/62 98 Room Air Intake & Output 09/02 1600 09/02 0800 09/02 0000 Intake Total 910 1040 540 Output Total Balance 910 1040 540 Intake, IV 350 800 300 Intake, Oral 560 240 240 Number 0 0 Bowel Movements Physical Exam General Appearance: Alert, Oriented X3, Cooperative, No Acute Distress Skin: No Rashes, No Breakdown, No Significant Lesion Skin Temp/Moisture Exam: Warm/Dry Sepsis Skin Exam (color): Normal for Ethnicity HEENT: Atraumatic, PERRLA, EOMI, Mucous Membr. moist/pink Cardiovascular: Regular Rate, Normal S1, Normal S2, No Murmurs Lungs: Clear to Auscultation, Normal Air Movement Abdomen: Normal Bowel Sounds Neurological: Normal Speech Extremities: No Edema, Normal Pulses, No Tenderness/Swelling Current Medications: Current Medications Sig/Maximilian Start time Last Medication Dose Route Stop Time Status Admin Acetaminophen 650 MG .STK-MED ONE 09/01 2101 DC PO 09/01 210 Acetaminophen 650 MG Q8P PRN 08/31 2330 AC 09/02 PO 1624 Benzocaine/Menthol 1 CHAD Q2P PRN 09/02 1215 AC PO Cephalexin 500 MG Q12 09/01 1230 AC 09/02 PO 0857 Docusate Sodium 100 MG DAILY 09/02 1000 AC 09/02 PO 0857 Enoxaparin Sodium 40 MG DAILY 09/01 1000 AC 09/02 SC 0857 Oseltamivir Phosphate 75 MG BID 09/01 1000 AC 09/02 PO 09/05 0959 0857 Sodium Chloride 1,000 ML Q10H 08/31 2330 DC 09/01 IV 09/02 Assessment/Plan Assessment: The patient is 22-year-old female with past medical history 1 miscarriage and 1 . She is at 20 wk of gestation at present. She's presented to [facility] ED on 08/31 with complaint of body aches fever and dry cough. -Vital signs temperature 103, heart rate 126, blood pressure 119/72, oxygen saturation 97% on room air -Pertinent labs H/H 10.331, AST 64 ALT 62 urine shows moderate leukoesterase with many epithelial cells, few urine bacteria and 3-5 urine WBCs -In ED patient dropped her pressure to 85/47 and received 2L normal saline 975 mg of Tylenol. Flu test was done which was positive. The patient is being admitted to general medicine floor and is being treated evaluated for following conditions #Sepsis secondary to Influenza type A Patient has symptoms of fatigue and body aches and is presenting with fever, tachycardia and transient hypotension. Her flu test was positive for type influenza type A. -Tamiflu 75 BID for 5 days TOTAL. WILL DC WITH 3 DAYS REMAINING -Monitoring vitals closely -Panculture -IVF AT RATE OF 100 #Asymptomatic bacteriuria Patient UA positive for moderate leukoesterase along with bacteria and few WBCs. Asymptomatic bacteriuria should be treated in . However UA does show many epithelial cells questioning the specimen. was contacted in the ED and recommended to hold off antibiotics till cultures. HE THEN PUT IN A NOTE STATING TO START KEFLEX. -CONTINUE KEFLEX 500 BID FOR TOTAL OF 7 DAYS. -Follow urine culture -Low threshold of treating the UTI #Transaminitis patient is presenting with AST 64 and ALT 62 likely secondary to ongoing viral infection # Patient is at 20 weeks of gestation. -DR. CASTILLO CHECKED THE PATIENT AND HER AND HAD NO CONCERNS. #FC/DVT prophylaxis with Lovenox/regular diet Problem List: 1. 2. Urinary tract infection 3. Influenza Pain Ratin Pain Location: THROAT Pain Goal: Pain 4 or less Pain Plan: LOZANGES AND TYLENOL Tomorrow's Labs & Rationales: Ana Laura Norton 09/02/17 1436: Attending MD Review Statement Attending Statement Attending MD Statement: examined this patient, discuss w/resident/PA/SCENIC ARTIST, agreed w/resident/PA/SCENIC ARTIST, discussed with family, reviewed EMR data (avail), discussed with nursing, discussed with case mgmt, reviewed images, amended to note Attending Assessment/Plan: A/P; 22 y/o 20 weeks admitted with fever, influenza positive, and asymptomatic bacteriuria. Continue PO abx, tamiflu. Follow up cx negative so far. camp nurse noted. Patient is clinically improving. Patient is encouraged PO hydration and can be discharged in stable condition. FOLLOW UP Medical Planner in 1-2 weeks of discharge.
[2017-09-02] MEDS ORDERED: KEFLEX500 M1 PO (12:09)
[2017-09-02] MEDS ORDERED: TAMIFLU75 M1 PO (12:09)
--- NOTE | 2017-09-02 12:10 | Patient Discharge Instructions ---
Discharge Instructions General Discharge Information You were seen/treated for: urinary tract infection flu Special Instructions: 1. please follow up with your pcp in one week 2. please follow up with your OBGYN in one week Diet Continue normal diet: Yes Activity Full Activity/No Limits: Yes (as tolerated) Acute Coronary Syndrome Inclusion Criteria At DC or during hospital stay patient has or had the following: ACS DIAGNOSIS No Discharge Core Measures Meds if any: Prescribed or Continued at Discharge Meds if any: NOT Prescribed or Continued at Discharge Congestive Heart Failure Inclusion Criteria At DC or during hospital stay patient has or had the following: CHF DIAGNOSIS No Discharge Core Measures Meds if any: Prescribed or Continued at Discharge Meds if any: NOT Prescribed or Continued at Discharge Cerebrovascular accident Inclusion Criteria At DC or during hospital stay patient has or had the following: CVA/TIA Diagnosis No Discharge Core Measures Meds if any: Prescribed or Continued at Discharge Meds if any: NOT Prescribed or Continued at Discharge Venous thromboembolism Inclusion Criteria VTE Diagnosis No VTE Type NONE VTE Confirmed by (Test) NONE Discharge Core Measures - Per Current guidelines, there needs to be overlap - treatment for the first 5 days of Warfarin therapy. - If discharged on Warfarin prior to 5 days of - overlap therapy, the patient will need to be - assessed for post discharge needs including - *Post discharge parental anticoagulation - *Warfarin and/or parental anticoagulation education - *Follow up date to check INR post discharge At least 5 days overlap therapy as Inpatient No Meds if any: Prescribed or Continued at Discharge Note: Overlap Therapy is Warfarin and Anticoagulant Meds if any: NOT Prescribed or Continued at Discharge
[2017-09-02] MEDS ORDERED: CEPACOL SORE T1 EAC1 PO (12:17)
[2017-09-02 23:06] VITALS: BP 103/59
[2017-09-03 07:19] VITALS: BP 106/54
--- NOTE | 2017-09-03 09:06 | PN- Housestaff ---
Bairon COUCH,Valeria 09/03/17 0905: Subjective Follow-up For: FLU ASYMPTOMATIC UTI IN Subjective: PATIENT FEELING BETTER TODAY. no events Review of Systems Constitutional: Reports: no symptoms. Objective Last 24 Hrs of Vital Signs/I&O Vital Signs Date Time Temp Pulse Resp B/P B/P Pulse O2 O2 Flow FiO2 Mean Ox Delivery Rate 09/03 0719 97.7 61 18 106/54 98 Room Air 09/02 2306 97.6 73 18 103/59 99 Room Air Intake & Output 09/03 1600 09/03 0800 09/03 0000 Intake Total 1010 Output Total 900 Balance 110 Intake, IV 10 Intake, Oral 1000 Number 0 Bowel Movements Output, Urine 900 Physical Exam General Appearance: Alert, Oriented X3, Cooperative, No Acute Distress Cardiovascular: Regular Rate, Normal S1, Normal S2, No Murmurs Lungs: Clear to Auscultation, Normal Air Movement Abdomen: Normal Bowel Sounds, Soft, No Tenderness Extremities: No Clubbing, No Cyanosis, No Edema, Normal Pulses, No Tenderness/ Swelling Current Medications: Current Medications Sig/Maximilian Start time Last Medication Dose Route Stop Time Status Admin Acetaminophen 650 MG Q8P PRN 08/31 2330 DCD 09/02 PO 1624 Benzocaine/Menthol 1 CHAD Q2P PRN 09/02 1215 DCD 09/02 PO 2035 Cephalexin 500 MG Q12 09/01 1230 DCD 09/03 PO 1031 Docusate Sodium 100 MG DAILY 09/02 1000 DCD 09/03 PO 1030 Enoxaparin Sodium 40 MG DAILY 09/01 1000 DCD 09/02 SC 0857 Oseltamivir Phosphate 75 MG BID 09/01 1000 DCD 09/03 PO 09/05 0959 1031 Polyethylene Glycol 17 GM DAILY 09/03 1216 DCD 09/03 PO 1224 Assessment/Plan Assessment: The patient is 22-year-old female with past medical history 1 miscarriage and 1 . She is at 20 wk of gestation at present. She's presented to [facility] ED on 08/31 with complaint of body aches fever and dry cough. -Vital signs temperature 103, heart rate 126, blood pressure 119/72, oxygen saturation 97% on room air -Pertinent labs H/H 10.3/31, AST 64 ALT 62 urine shows moderate leukoesterase with many epithelial cells, few urine bacteria and 3-5 urine WBCs -In ED patient dropped her pressure to 85/47 and received 2L normal saline 975 mg of Tylenol. Flu test was done which was positive. The patient is being admitted to general medicine floor and is being treated evaluated for following conditions PATIENT HAS NORMAL VITALS TODAY #Sepsis secondary to Influenza type A Patient has symptoms of fatigue and body aches and is presenting with fever, tachycardia and transient hypotension. Her flu test was positive for type influenza type A. -Tamiflu 75 BID for 5 days TOTAL. WILL DC WITH 2.5 DAYS REMAINING -Monitoring vitals closely -Panculture negative #Asymptomatic bacteriuria Patient UA positive for moderate leukoesterase along with bacteria and few WBCs. Asymptomatic bacteriuria should be treated in . However UA does show many epithelial cells questioning the specimen. was contacted in the ED and recommended to hold off antibiotics till cultures. HE THEN PUT IN A NOTE STATING TO START KEFLEX. -CONTINUE KEFLEX 500 BID FOR TOTAL OF 7 DAYS, 4.5 days remaining #Transaminitis patient is presenting with AST 64 and ALT 62 likely secondary to ongoing viral infection. NO ABD PAIN. # Patient is at 20 weeks of gestation. -DR. CASTILLO CHECKED THE PATIENT AND HER AND HAD NO CONCERNS. #FC/DVT prophylaxis with Lovenox/regular diet Problem List: 1. 2. Urinary tract infection 3. Influenza Pain Ratin Pain Location: na Pain Goal: Remain pain free Pain Plan: na Tomorrow's Labs & Rationales: freddy SolomonAna Laura katz 09/03/17 1231: Attending MD Review Statement Attending Statement Attending MD Statement: examined this patient, discuss w/resident/PA/NATIONAL FACILITIES MANAGER, agreed w/resident/PA/NATIONAL FACILITIES MANAGER, discussed with family, reviewed EMR data (avail), discussed with nursing, discussed with case mgmt, reviewed images, amended to note Attending Assessment/Plan: A/P; 22 y/o 20 weeks admitted with fever, influenza positive, and asymptomatic bacteriuria. Continue PO abx, tamiflu. Follow up cx negative so far. mechanism assembler noted. Patient is clinically improving. Patient is encouraged PO hydration and can be discharged in stable condition. FOLLOW UP Top Lifter in 1-2 weeks of discharge.
[2017-09-03] MEDS ORDERED: TAMIFLU75 M1 PO (12:15)
[2017-09-03] MEDS ORDERED: KEFLEX500 M1 PO (12:15)
--- NOTE | 2017-09-03 17:54 | Discharge Summary ---
Visit Information Visit Dates Admission Date: 08/31/17 Discharge Date: 09/03/17 Hospital Course Course Attending Physician: Carlos COUCH,Ana Laura Primary Care Physician: Unknown Hospital Course: The patient is 22-year-old female with past medical history OF Asthma, 1 miscarriage and 1 . She is at 20 wk of gestation at present. She's presented to [place] ED on 08/31 with complaint of body aches fever and dry cough. Patient was in usual state of health until one week back when she developed a stomach viral illness resulting in diarrhea. Patient was sick for 2 days and recovered. She was feeling better but has not been going to work for past 1 week. Today patient had sudden onset of body aches and pains. She took a temperature at home and it was up to 102. She took Tylenol around 1 PM and had some symptomatic relief but later started feeling body/muscle aches and fatigue. She also developed a dry cough 3-4 hours before presenting to ED. Rest of review of system is negative no chills. No nausea no abdominal pain or urinary symptoms. No sick contacts. Patient did not receive flu shot this year. IN THE ED: -Vital signs temperature 103, heart rate 126, blood pressure 119/72, oxygen saturation 97% on room air -Pertinent labs H/H 10.3/31, WBC 5.3, AST 64 ALT 62 urine shows moderate leukoesterase with many epithelial cells, few urine bacteria and 3-5 urine WBCs -In ED patient dropped her pressure to 85/47 and received 2L normal saline 975 mg of Tylenol. Flu test was done which was positive for type A. The patient is being admitted to general medicine floor and is being treated and evaluated for the following conditions: #Sepsis secondary to Influenza type A: patient has symptoms of fatigue and body aches and is presenting with fever, tachycardia and transient hypotension but over time these dissipated and patient felt better. -Tamiflu 75 BID for 5 days TOTAL. Patient was discharged with 5 doses remaining.= -Panculture was negative #Asymptomatic bacteriuria Patient UA positive for moderate leukoesterase along with bacteria and few WBCs. Asymptomatic bacteriuria should be treated in . However UA does show many epithelial cells questioning the specimen. was contacted in the ED and recommended to hold off antibiotics till cultures. HE THEN PUT IN A NOTE STATING TO START KEFLEX and it was begun. -We continued KEFLEX 500 BID FOR TOTAL OF 7 DAYS, with 9 doses remaining at discharge and prescribed outpatient. #Transaminitis Patient is presenting with AST 64 and ALT 62 likely secondary to ongoing viral infection. NO ABD PAIN. # Patient is at 20 weeks of gestation, no complications in the at this point. DR. CASTILLO CHECKED THE PATIENT AND HER with ULTRASOUND ABDOMEN AND HAD NO CONCERNS. #FC/DVT prophylaxis with Lovenox/regular diet Allergies: Coded Allergies: No Known Allergies (08/31/17) Disposition Summary Disposition Principal Diagnosis: FLU Additional Diagnosis: TRANSAMINITIS SECONDARY TO VIRAL INFECTION Discharge Disposition: home or self care Discharge Instructions General Discharge Information Code Status: Full Code Patient's Diet: REGULAR Patient's Activity: TOLERATED Follow-Up Instructions/Appts: 1. PLEASE FOLLOW UP WITH PCP IN ONE WEEK 2. PLEASE FOLLOW UP WITH OBGYN IN ONE WEEK Medications at Discharge Discharge Medications: Continue taking these medications: Pnv59/Iron,Carb&Fum/FA/Dss/Dha (Citranatal [place] Capsule) 27 MG IRON-1 MG-50 MG-260 MG CAPSULE 1 Capsule ORAL DAILY Qty = 30 Albuterol Sulfate (Proair Hfa) 90 MCG HFA.AER.AD 2 Puff Inhale through mouth as needed for ASTHMA Start taking the following new medications: Oseltamivir Phosphate (Tamiflu) 75 MG CAPSULE 1 Capsule ORAL TWICE DAILY Qty = 5 No Refills Comments: LAST GIVEN 09/03/17 @ 1030 Cephalexin (Keflex) 500 MG CAPSULE 1 Capsule ORAL TWICE DAILY Qty = 9 No Refills Comments: LAST GIVEN 09/03/17 @ 1030 Benzocaine/Menthol (Cepacol Sore Throat Lozenge) 15 MG-3.6 MG LOZENGE 1 LOZENGE ORAL EVERY 2 HOURS NEEDED as needed for SORE THROAT Qty = 30 No Refills Copies To: Emiyl COUCH,Rayo Griffin Attending MD Review Statement Documenting Attending: Ana Laura Gonzalez MD Other Findings: A/P; 22 y/o 20 weeks admitted with fever, influenza positive, and asymptomatic bacteriuria. Continue PO abx, tamiflu. Follow up cx negative so far. cancer program coordinator noted. Patient is clinically improving. Patient is encouraged PO hydration and can be discharged in stable condition. FOLLOW UP [employer] in 1-2 weeks of discharge.
== END 2017-09-03 12:45 | DRG 566 ==
LOC: ERH 16:38 → 2NB 21:14 → ERHI 21:14 → ENTRNSPT 22:31 → EDTRNSPTSTS 22:40 → 2NB 22:49 → CMPTRNSPT 23:01 → 2NB 09-02 08:43 → ENPENDDIS 09-03 12:17 → 2NB 09-03 12:45
PROVIDERS: Physician Assistant
DX: O98.812 Other maternal infectious and parasitic diseases complicating pregnancy, second trimester (principal); J45.909 Unspecified asthma, uncomplicated; R74.0 Nonspecific elevation of levels of transaminase and lactic acid dehydrogenase [LDH]; Z87.891 Personal history of nicotine dependence; A41.89 Other specified sepsis; Z3A.20 20 weeks gestation of pregnancy; O09.292 Supervision of pregnancy with other poor reproductive or obstetric history, second trimester; O23.42 Unspecified infection of urinary tract in pregnancy, second trimester; J09.X2 Influenza due to identified novel influenza A virus with other respiratory manifestations; O26.892 Other specified pregnancy related conditions, second trimester
CPT/HCPCS: 2NBP; 36415; 81001; 87040; 87070; 87086; 87804; 87804-59; 96360; 96361; J1650